=== PATIENT | female | born 1965 | race Caucasian/White ===

== ENCOUNTER 2025-06-20 16:26 | Observation (INO) | payer OTHER ==
[~2025-06-20] VITALS: Ht 167.6 cm; Wt 110.0 kg
[~2025-06-20 16:26] MED LIST: ADULT ASPIRIN R81 MG PO; ATIVAN1 MG PO; BACTRIM DS TAB1 EACH PO; DEXAMETHASONE4 MG PO; ESTRADIOL1 G2 PV; FENOFIBRATE160 MG PO; LEVOTHYROXINE88 MC1 PO; METOPROLOL SUCC50 MG PO; MIRENA; ONDANSETRON ODT8 MG SL; TRIAMTERENE-HC1 EAC1 PO; VALACYCLOVIR500 MG PO
[2025-06-20 16:43] LABS: BASOPHILS 0.4 % (0.1-1.2); EOSINOPHILS 2.5 % (0.7-5.8); LYMPHOCYTES 34.7 % (19.3-51.7); MCH 31.0 PG (25.6-32.2); MCHC 34.2 g/dL (32.2-35.5); MCV 90.7 fL (79.4-94.8); MONOCYTES 12.8 % (4.7-12.5); NEUTROPHILS 49.4 % (34.0-71.1); RBC 4.61 M/uL (3.93-5.22)
[2025-06-20] MEDS ORDERED: HYDROCHLOROTH12.5 MG PO (16:46)
[2025-06-20 16:56] LABS: ALT (SGPT) 61.0 U/L (14-59); AST (SGOT) 50.0 U/L (15-37); GLOMERULAR FILTRATION RATE,EST 60.0 mL/min (>60); PROTEIN, TOTAL 7.2 g/dL (6.4-8.2); UREA NITROGEN 16.0 mg/dL (7-18)
[2025-06-20] MEDS ORDERED: diazePAM 10 MG/2 ML SYR IV ONE (17:30)
[2025-06-20] MEDS ORDERED: MECLIZINE HCL 25 MG TAB PO ONE (17:30)
[2025-06-20] MEDS ORDERED: DEXAMETHASONE SOD PHOS 10 MG/ML VIAL IV ONE (20:00)
[2025-06-20] MEDS ORDERED: POTASSIUM CHLORIDE 10 MEQ TABCR PO ONE (20:00)
[2025-06-20] MEDS ORDERED: MECLIZINE HCL 25 MG TAB PO PRN (22:00)
[2025-06-20] MEDS ORDERED: ACETAMINOPHEN 325 MG TAB PO PRN (22:00)
[2025-06-20] MEDS ORDERED: PROCHLORPERAZINE EDISYLATE 10 MG/2 ML VIAL IV PRN (22:00)
[2025-06-20] MEDS ORDERED: LORazepam 2 MG/ML VIAL IV PRN (22:15)
--- NOTE | 2025-06-20 22:20 | NUR ---
PATIENT ARRIVED TO THE UNIT VIA STRETCHER. PATIENT MOVED VIA SLIDE SHEET TO BED. PATIENT IS ABLE TO MOVE BUT NAUSEA IS SIGNIFICANTLY WORSE WITH ANY MOVEMENT. PATIENT HAS SEVERE SENSITIVITY TO LIGHT. EYE MASK PROVIDED. LIGHTS DIMMED. PATIENT VS STABLE. TOLERATING ROOM AIR. PURE WIC IN PLACE FROM ED. PATIENT HAS NOT YET VOIDED. SKIN IS GROSSLY INTACT. IV SLITE WNL. PATIENT'S IN ROOM. PATIENT IS AAOX4. NORMAL STRENGTH BILATERALLY. FACIAL MOVEMENTS EQUAL. NEURO ASSESSMENT WNL; EXCEPT PUPIL RESPONCE WHICH IS DEFFERED DUE TO SEVERE LIGHT SENSITIVITY.
[2025-06-20 22:24] VITALS: BP 144/89
--- NOTE | 2025-06-20 22:30 | NUR ---
DISCUSSED PATIENT'S CONDITION WITH MD; ORDERS RECEIVED FOR IV FLUIDS. VERIFIED VIA REPEAT BACK.
[2025-06-20] MEDS ORDERED: LACTATED RINGER'S 1,000 ML IV SCH (22:45)
[2025-06-20 23:00] VITALS: BP 121/72
--- NOTE | 2025-06-20 23:00 | NUR ---
PATIENT PROVIDED PRN FOR NAUSEA. IV FLUIDS STARTED. SITE WNL. PATIENT REPORTING ANXIETY. EYE MASK REMOVED DUE TO FEELING "TRAPPED". PATIENT PROVIDED AN ADAPTIVE CALL LIGHT AND SHOWS ABILITY TO USE BUTTON. LIGHTS ARE OFF. PATIENT'S IS GONE FOR THE NIGHT. PATIENT ATTEMPTING TO REST.
--- NOTE | 2025-06-20 23:49 | NUR ---
PATIENT PROVIDED ORAL SWAB FOR DRY MOUTH. PATIENT REPORTS ANXIETY AND NAUSEA HAVE IMPROVED.
[2025-06-21] VITALS (12 sets, daily range): BP systolic 114–134; BP diastolic 64–82
--- NOTE | 2025-06-21 01:28 | NUR ---
patient voided via pure wic. sample collected. patient reports dizziness but no nausea at this time. neuro assessment remains unchanged. vs stable.
[2025-06-21 01:30] LABS: BLOOD/HGB, URINE MODERATE (Negative); KETONE, URINE NEGATIVE (Negative); LEUK ESTERASE, URINE NEGATIVE (negative); NITRITE, URINE NEGATIVE (negative)
[2025-06-21 01:45] LABS: AMPHETAMINES, URINE NEGATIVE (NEGATIVE); BARBITURATES, URINE NEGATIVE (NEGATIVE); BENZODIAZEPINE, URINE NEGATIVE (NEGATIVE); CANNABINOID, URINE NEGATIVE (NEGATIVE); COCAINE, URINE NEGATIVE (NEGATIVE); ECSTASY, URINE NEGATIVE (NEGATIVE); FENTANYL, URINE NEGATIVE (NEGATIVE); METHADONE, URINE NEGATIVE (NEGATIVE); OPIATES, URINE NEGATIVE (NEGATIVE); OXYCODONE, URINE NEGATIVE (NEGATIVE); PHENCYCLIDINE, URINE NEGATIVE (NEGATIVE)
[2025-06-21 01:52] LABS: BACTERIA, URINE 1+ /hpf (negative); CASTS, URINE NONE SEEN \\lpf; CRYSTALS, URINE NONE SEEN (0-1+); EPITHELIAL CELLS, URINE SQUAMOUS 2+ /lpf (0-1+); REFLEX CULTURE, URINE No (No)
--- NOTE | 2025-06-21 04:00 | NUR ---
PATIENT RESTING IN BED; EYES CLOSED. PATIENT WAKES EASILY TO VOICE. REPORTS FEELING DIZZY BUT NO NAUSEA IF SHE DOESN'T MOVE. IV FLUIDS INFUSING PER ORDER; SITE WNL. NEURO EXAM UNCHANGED; REMAINS SENSITIVE TO LIGHTS.
[2025-06-21 05:16] LABS: BASOPHILS 0.2 % (0.1-1.2); EOSINOPHILS 0 % (0.7-5.8); LYMPHOCYTES 16.3 % (19.3-51.7); MCH 32.2 PG (25.6-32.2); MCHC 35.3 g/dL (32.2-35.5); MCV 91.2 fL (79.4-94.8); MONOCYTES 3.7 % (4.7-12.5); NEUTROPHILS 79.4 % (34.0-71.1); RBC 4.66 M/uL (3.93-5.22)
[2025-06-21 05:32] LABS: ALT (SGPT) 61.0 U/L (14-59); AST (SGOT) 38.0 U/L (15-37); GLOMERULAR FILTRATION RATE,EST 73.0 mL/min (>60); PROTEIN, TOTAL 7.4 g/dL (6.4-8.2); UREA NITROGEN 14.0 mg/dL (7-18)
--- NOTE | 2025-06-21 06:00 | NUR ---
MRI PATIENT SCREENING FORM COMPLETED WITH PATIENT. PATIENT IS UNABLE TO OPEN HER EYES WITHOUT "[employer] SPINNING", THEREFORE FORM NOT SIGNED AT THIS TIME. PATIENT'S PLANS TO RETURN SOON AND SHE WOULD LIKE HIM TO SIGN FOR HER.
--- NOTE | 2025-06-21 06:43 | NUR ---
PATIENT PROVIDED MEDS PER ORDER. TOLERATED WELL. REPORTS STOMACH "SORE" BUT NO NAUSEA AT THIS TIME.
[2025-06-21] MEDS ORDERED: LEVOTHYROXINE SODIUM 88 MCG TAB PO SCH ×2 (07:00→10:17)
[2025-06-21] MEDS ORDERED: METOPROLOL SUCCINATE 50 MG TABCR PO SCH ×2 (09:00→10:17)
[2025-06-21] MEDS ORDERED: hydroCHLOROthiazide 25 MG TAB PO SCH (09:00)
--- NOTE | 2025-06-21 09:22 | NUR ---
WENT INTO ROOM BECAUSE HER PULSE OX WASN'T PICKING UP HER OXYGEN. WARMED UP PATIENT'S FINGER ALSO BROUGHT HER A WARM BLANKET. AND TURNED HER HEAT UP IN HER ROOM.
--- NOTE | 2025-06-21 10:14 | NUR ---
PT TAKEN DOWN FOR MRI WITH BROOK ESPA[facility]A.
[2025-06-21] MEDS ORDERED: ASPIRIN 81 MG TABEC PO SCH (10:16)
[2025-06-21] MEDS ORDERED: LORazepam 1 MG TAB PO PRN (10:30)
[2025-06-21] MEDS ORDERED: MECLIZINE HCL 25 MG TAB PO PRN (10:30)
--- NOTE | 2025-06-21 11:03 | NUR ---
AM MEDS GIVEN TO PT, NO REQUESTS AT THIS TIME. UPDATED ON PLAN OF CARE, WAITING ON MRI REPORT AND POSSIBLE PHYSICAL THERAPY LATER TODAY. IN ROOM WITH PT.
--- NOTE | 2025-06-21 11:19 | NUR ---
UR CLINICAL REVIEW: [facility] [place] REVIEW MEET OBS FOR VERTIGO WITH NEED FOR SYMPTOM MANAGEMENT, PT/OT AND MRI MODA OBS 06/20/25 @ 1628 ORDER MATCHES REG NO AUTH REQUIRED FOR OBS VISIT PER MOD[facility] GUIDELINES DISCHARGE TO HOME WHEN STABLE 06/22/25
--- NOTE | 2025-06-21 11:55 | NUR ---
ALERT AND ORIENTED IN BED. SPOUSE AT BEDSIDE. LIVES IN HOUSE, HAS STAIRS BUT HELPS HER NAVIGATE THEM. SHE HAS NO DME. PATIENT DRIVES AT BASELINE. BOTH PATIENT AND SPOUSE DENY FINANCIAL CONCERNS. THEY PLAN FOR PATIENT TO DC TO HOME WHEN MEDICALLY READY, NO CM NEEDS.
[2025-06-21] MEDS ORDERED: predniSONE 20 MG TAB PO SCH (12:06)
[2025-06-21] MEDS ORDERED: FLUTICASONE PROPIONATE 50 MCG BTL NAS ONE (12:15)
[2025-06-21] MEDS ORDERED: OXYMETAZOLINE HCL 30 ML BTL NAS SCH (12:15)
[2025-06-21] MEDS ORDERED: CEFDINIR 300 MG CAP PO ONE (12:15)
[2025-06-21] MEDS ORDERED: CEFDINIR300 MG PO (12:27)
[2025-06-21] MEDS ORDERED: FLUTICASONE PRO16 GM NAS (12:29)
[2025-06-21] MEDS ORDERED: MECLIZINE HCL25 MG PO (12:30)
[2025-06-21] MEDS ORDERED: PREDNISONE20 MG PO (12:30)
[2025-06-21] MEDS ORDERED: NASAL SPRAY30 M1 NAS (12:30)
--- NOTE | 2025-06-21 13:23 | NUR ---
PT AND HER WERE GIVEN DISCHARGE INSTRUCTIONS, PT GAVE VERBAL OKAY FOR TO SIGN HER PAPERWORK. PT WILL LEAVE HOSPITAL TO OUTPATIENT THERAPY FOR TREATMENT FOR VERTIGO. NO QUESTIONS AT THIS TIME, IV DC'D WITH TIP INTACT.
[2025-06-21] MEDS ORDERED: LACTATED RINGER'S 1,000 ML IV SCH (22:45)
[2025-06-22] MEDS ORDERED: VALACYCLOVIR HCL 500 MG TAB PO SCH (09:00)
--- NOTE | 2025-06-22 18:40 | EKG ---
[facility] [address] [facility] [place] [address] Signed Normal sinus rhythm Nonspecific T wave abnormality Abnormal ECG No previous ECGs available Confirmed by Tiff Kelly MD () on 06/22/2025 6:40:28 PM Electronically Signed By: TIFF KELLY MD 06/22/25 1840 PATIENT NAME: REMY HOWARDWHITNEYRYNE KAUR Electrocardiogram DATE OF : 63 PHYSICIAN: TIFF KELLY MD REPORT #: [id number] REPORT IS CONFIDENTIAL AND NOT TO BE RELEASED WITHOUT AUTHORIZATION
== END 2025-06-21 13:11 | disposition home or self-care (01) ==
LOC: ED 16:26 → CCU 16:28
PROVIDERS: Emergency Medicine; Family Medicine; ADMIT Internal Medicine; ATTEND Internal Medicine
DX: R42 Dizziness and giddiness (principal); R11.2 Nausea with vomiting, unspecified; H65.91 Unspecified nonsuppurative otitis media, right ear; I10 Essential (primary) hypertension; E78.5 Hyperlipidemia, unspecified; Z91.040 Latex allergy status; Z88.8 Allergy status to other drugs, medicaments and biological substances; Z79.899 Other long term (current) drug therapy
CPT/HCPCS: 36415; 70450; 70496; 70498; 70553; 80053; 80307; 81001; 83735; 85025; 93005; 93010; 94799; 96361; 96374; 96375; 97112; 97161; 99285-25; A9270; A9573; G0378; J0780; J1100; J2405; J3360; J7121; J7512; Q9967